=== PATIENT | male | born 1950 | race African-American/Black ===

== ENCOUNTER 2019-09-17 19:11 | Emergency (ER) | payer BC ==
[~2019-09-17] VITALS: Ht 175.3 cm; Wt 77.1 kg
--- NOTE | 2019-09-17 19:30 | NUR ---
PT BIBF C/O NEW ONSET OF CONFUSION X 2.5 HOURS AGO. HX OF TIA. -NEUROLOGICAL DEFICITS. 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 NO DRIFTS ON EXTREMITIES. PT AAOX4, RESPIRATIONS EVEN AND UNLABORED ON RA W/ NAD NOTED. 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
[2019-09-17 20:00] LABS: BASOPHILS % (AUTO) 0.6 % (0.0-2.0); EOSINOPHILS % (AUTO) 1.9 % (0.0-6.0); HEMATOCRIT 43 % (39-51); HEMOGLOBIN 14.3 g/dL (13.5-17.5); LYMPHOCYTES # (AUTO) 1.5 /CMM (0.8-4.8); LYMPHOCYTES % (AUTO) 23.1 % (20.0-44.0); MEAN CORPUSCULAR HGB CONC 33 g/dl (31.0-36.0); MEAN CORPUSCULAR VOLUME 97 fL (80-96); MONOCYTES # (AUTO) 0.6 /CMM (0.1-1.30); MONOCYTES % (AUTO) 8.7 % (2.0-12.0); NEUTROPHILS # (AUTO) 4.1 /CMM (1.8-8.9); NEUTROPHILS % (AUTO) 65.7 % (43.0-81.0); PLATELET COUNT (AUTO) 182 /CMM (150-450); RED BLOOD CELL COUNT(AUTO) 4.46 MIL/uL (4.5-6.0); WHITE BLOOD COUNT (AUTO) 6.3 K/uL (4.3-11.0)
[2019-09-17 20:07] LABS: CALCIUM, SERUM 8.8 mg/dL (8.5-10.1); CARBON DIOXIDE 24 mmol/L (21-32); CHLORIDE 105 mmol/L (98-107); CREATININE 1.3 mg/dL (0.6-1.3); GLUCOSE 86 mg/dL (74-106); SODIUM SERUM 140 mmol/L (136-145); UREA NITROGEN, BLOOD 23 mg/dL (7-18)
--- NOTE | 2019-09-17 20:09 | NUR ---
PT TAKEN TO CT
--- NOTE | 2019-09-17 20:30 | NUR ---
PT BACK FROM CT
[2019-09-17] MEDS ORDERED: ASPIRIN EC 325 MG TABLET.DR PO ONE (20:38)
[2019-09-17] MEDS ORDERED: ASPIRIN 325 MG TABLET PO ONE (21:00)
[2019-09-17] MEDS ORDERED: ASPIRIN 81 MG TAB.CHEW PO ONE (21:00)
[2019-09-17] MEDS ORDERED: IV NS 0.9% 1,000 ML IV ONE (21:00)
[2019-09-17] MEDS ORDERED: ASPIRIN 81 MG TAB.CHEW ONE (21:17)
--- NOTE | 2019-09-17 22:24 | NUR ---
ACCPTED GLENDALE SHANTHI
--- NOTE | 2019-09-17 22:43 | NUR ---
QUETA MAKI [id number] #REPORT [phone]
--- NOTE | 2019-09-17 22:52 | NUR ---
REPORT GIVEN TO PRISCILLA SUAREZ FROM [facility] [phone]
--- NOTE | 2019-09-18 00:30 | NUR ---
Patient does not wish to proceed with medical care recommended by Dr. Álvarez. Patient given information related to possible complications, up to and including , which could occur as a result of leaving the hospital at this time. Patient verbalizes understanding of risks involved due to leaving against medical advice. Patient has signed AMA form. Pt ambulatory w/ steady gait. No neurological deficits. Pt denies any weakness.
[2019-09-18 00:35] VITALS: BP 141/87
== END 2019-09-18 00:35 | disposition left against medical advice (07) ==
LOC: ER 19:14
DX: G45.9 Transient cerebral ischemic attack, unspecified (principal); J32.9 Chronic sinusitis, unspecified; E86.0 Dehydration; E03.9 Hypothyroidism, unspecified; Z90.89 Acquired absence of other organs
CPT/HCPCS: 36415; 70450; 71045; 80048; 82962; 84484; 85025; 85730; 93005; 96360; 99285; J7030